=== PATIENT | male | born 1970 | race Caucasian/White ===

== ENCOUNTER → 2021-06-29 | Day surgery (SDC) | payer BC ==
[2021-06-29 09:55] VITALS: BP 117/65
== END | disposition home or self-care (01) ==
LOC: OR 06:40
PROVIDERS: ATTEND Internal Medicine Gastroenterology
DX: Z12.11 Encounter for screening for malignant neoplasm of colon (principal); D12.2 Benign neoplasm of ascending colon; D12.3 Benign neoplasm of transverse colon; D12.4 Benign neoplasm of descending colon; D12.5 Benign neoplasm of sigmoid colon; K64.8 Other hemorrhoids; E66.01 Morbid (severe) obesity due to excess calories; Z68.42 Body mass index [BMI] 45.0-49.9, adult; Z80.8 Family history of malignant neoplasm of other organs or systems; Z83.71 Family history of colonic polyps; Z01.810 Encounter for preprocedural cardiovascular examination; Z01.812 Encounter for preprocedural laboratory examination; Z20.822 Contact with and (suspected) exposure to COVID-19
CPT/HCPCS: 45380; 45385; 93005; U0002